=== PATIENT | female | born 1985 ===

== ENCOUNTER 2019-03-01 16:37 | Emergency (ER) | payer SELFPAY ==
[2019-03-01 16:45] VITALS: BP 130/66
--- NOTE | 2019-03-01 18:10 | Event Note ---
ED Screening Note Date of service: 03/01/19 Time: 18:09 ED Screening Note: 33 y o f presents at 7 weeks presents with vag bleed x 5 days worsening This initial assessment/diagnostic orders/clinical plan/treatment(s) is/are subject to change based on patients health status, clinical progression and re- assessment by fellow clinical providers in the ED. Further treatment and workup at subsequent clinical providers discretion. Patient/guardian urged not to elope from the ED as their condition may be serious if not clinically assessed and managed. Initial orders include: labs us pnc
--- NOTE | 2019-03-01 19:57 | Ultrasound Report ---
ULTRASOUND OBSTETRIC Indication: and bleeding Findings: Patient declined transvaginal imaging There is a single, living intrauterine . [place]-rump length = 1.03 cm = 7 weeks, 1 day(s). heart rate is 145 beats per minute. The ovaries are normal. There is no free fluid. Impression: Single, living intrauterine with estimated sonographic age of 7 weeks, 1 day(s). Signer Name: Ramón Garcia MD Signed: 03/01/2019 7:53 PM Workstation Name: [id number]
[2019-03-01 20:27] LABS: Basophils # (Auto) 0.1 K/mm3 (0.0-0.1); Basophils % (Auto) 0.7 % (0.0-1.8); Eosinophils # (Auto) 0.1 K/mm3 (0.0-0.4); Hematocrit 39.4 % (30.3-42.9); Hemoglobin 13.8 gm/dl (10.1-14.3); Lymphocytes # (Auto) 2.8 K/mm3 (1.2-5.4); Mean Corpuscular HGB Conc 35 % (30-34); Mean Corpuscular Volume 90 fl (79-97); Monocytes # (Auto) 0.6 K/mm3 (0.0-0.8); Platelet Count 266 K/mm3 (140-440); Red Blood Count 4.41 M/mm3 (3.65-5.03); Red Cell Distribution Width 13.5 % (13.2-15.2)
[2019-03-01 20:51] LABS: Bilirubin,Urine NEG (Negative); Blood,Urine NEG (Negative); Color,Urine Yellow (Yellow); Protein,Urine <15 mg/dL mg/dL (Negative); Urobilinogen,Urine < 2.0 mg/dL (<2.0)
[2019-03-01] MEDS ORDERED: ONDANSETRON 4 MG ODT TAB PO ONE (21:56)
--- NOTE | 2019-03-01 22:46 | Emergency Department Report ---
ED HPI - General Chief complaint: Vaginal Bleeding Stated complaint: VAGINAL BLEEDING/7WKS Time Seen by Provider: 03/01/19 21:11 Source: patient Mode of arrival: Ambulatory Limitations: No Limitations - History of Present Illness Initial comments: 33 y o f presents at 7 weeks presents with vag bleed x 5 days worsening - Related Data Previous Rx's Medication Instructions Recorded Last Taken Type Acetaminophen [Acetaminophen TAB] 650 mg PO Q6HR PRN #30 tablet 03/01/19 Unknown Rx Ondansetron [Zofran Odt] 4 mg PO Q8HR PRN #21 tab.rapdis 03/01/19 Unknown Rx Allergies Allergy/AdvReac Type Severity Reaction Status Date / Time No Known Allergies Allergy Unverified 03/01/19 18:55 ED Review of Systems ROS: Stated complaint: VAGINAL BLEEDING/7WKS Other details as noted in HPI ED Past Medical Hx - Past Medical History Previous Medical History?: No - Surgical History Past Surgical History?: No - Social History Smoking Status: Never Smoker Substance Use Type: None - Medications Home Medications: Home Medications Medication Instructions Recorded Confirmed Last Taken Type Acetaminophen [Acetaminophen TAB] 650 mg PO Q6HR PRN #30 tablet 03/01/19 Unknown Rx Ondansetron [Zofran Odt] 4 mg PO Q8HR PRN #21 tab.rapdis 03/01/19 Unknown Rx ED Physical Exam - General Limitations: No Limitations ED Course Vital Signs 03/01/19 03/01/19 16:43 18:11 Temperature 97.6 F 97.6 F Pulse Rate 72 72 Respiratory 16 16 Rate Blood Pressure 130/66 130/66 O2 Sat by Pulse 98 98 Oximetry ED Medical Decision Making - Lab Data Result diagrams: 03/01/19 19:55 - Radiology Data Radiology results: report reviewed, image reviewed Ordering Physician: FRANCISCO HARDIN Date of Service: 03/01/19 Procedure(s): US OB <= 14 weeks fetus Accession Number(s): [id number] cc: FRANCISCO HARDIN ULTRASOUND OBSTETRIC Indication: and bleeding Findings: Patient declined transvaginal imaging There is a single, living intrauterine . [place]-rump length = 1.03 cm = 7 weeks, 1 day(s). heart rate is 145 beats per minute. The ovaries are normal. There is no free fluid. Impression: Single, living intrauterine with estimated sonographic age of 7 weeks, 1 day(s). Signer Name: Ramón Garcia MD Signed: 03/01/2019 7:53 PM Workstation Name: [email or web address] Transcribed By: SS Dictated By: Ramón Garcia MD Electronically Authenticated By: Ramón Garcia MD Signed Date/Time: 03/01/191952 DD/ 50 TD/TT: - Medical Decision Making US OB: Single IUP 7 weeks and 4 days, FHR 145 bpm, pt ua; luek:trac, wbc, hc, blood type B pos, plan: keflex. zofran, tylenol follow up with OBGYN in 2-3 days, pt and sig other verbalized agreement and understanding of discharge plan. pt will follow up wth OBGYN in 2 days. there is no vaginal bleeding at this time, no n/v, no fever or chills, pt dc'd to home. Critical care attestation.: If time is entered above; I have spent that time in minutes in the direct care of this critically ill patient, excluding procedure time. ED Disposition Clinical Impression: Vaginal bleeding during , Threatened miscarriage Urinary tract infection during Qualifiers: Trimester: first trimester Qualified Code(s): O23.41 - Unspecified infection of urinary tract in , first trimester Qualifiers: Weeks of gestation: less than 8 weeks Qualified Code(s): Z3A.01 - Less than 8 weeks gestation of Disposition: DC-01 TO HOME OR SELFCARE Is pt being admited?: No Does the pt Need Aspirin: No Condition: Stable Instructions: Urinary Tract Infection in Women (ED), (ED), Threatened Miscarriage (ED) Prescriptions: Acetaminophen [Acetaminophen TAB] 650 mg PO Q6HR PRN #30 tablet PRN Reason: Pain Ondansetron [Zofran Odt] 4 mg PO Q8HR PRN #21 tab.rapdis PRN Reason: Nausea And Vomiting Referrals: RUSSELL BECKHAM MD [Staff Physician] - 3-5 Days Forms: Work/School Release Form(ED) Time of Disposition: 22:58 Print Language: VINCENTIAN
--- NOTE | 2019-03-01 23:09 | Emergency Department Report ---
ED HPI - General Chief complaint: Vaginal Bleeding Stated complaint: VAGINAL BLEEDING/7WKS Time Seen by Provider: 03/01/19 21:11 Source: patient Mode of arrival: Ambulatory Limitations: No Limitations - History of Present Illness Initial comments: Ms. Gordillo is s 33 y/o female who presents at 7 weeks for complaint of vaginal bleed x 5 days worsening. described as spotting pink, with urinary frequency, there is no fever no chills no n/v. pt is G2, p2, A0,. no other hx. pt denies exacerbating or relieving factors. states some morning sickness with n/v. Pt prefers to use and diplomatic interpreter/translator. MD Complaint: vaginal bleeding Onset/Timin -: days(s) Radiation: suprapubic Severity: moderate Quality: cramping Consistency: intermittent Improves with: none Worsens with: none Associated symptoms: vaginal bleeding Vaginal bleeding: light :: Yes Number of weeks : 7 OB History - Current : no complications OB History - Previous Pregnancies: no complications Last menstrual period: 01/09/19 Pre- care: followed by OB - Related Data : 2 Para: 2 Ab: 0 Previous Rx's Medication Instructions Recorded Last Taken Type Acetaminophen [Acetaminophen TAB] 650 mg PO Q6HR PRN #30 tablet 03/01/19 Unknown Rx Ondansetron [Zofran Odt] 4 mg PO Q8HR PRN #21 tab.rapdis 03/01/19 Unknown Rx Allergies Allergy/AdvReac Type Severity Reaction Status Date / Time No Known Allergies Allergy Unverified 03/01/19 18:55 ED Review of Systems ROS: Stated complaint: VAGINAL BLEEDING/7WKS Other details as noted in HPI Constitutional: denies: chills, fever Eyes: denies: eye pain, eye discharge, vision change ENT: denies: ear pain, throat pain Respiratory: denies: cough, shortness of breath, wheezing Cardiovascular: denies: chest pain, palpitations Endocrine: no symptoms reported Gastrointestinal: abdominal pain, nausea, vomiting. denies: diarrhea, constipation, melena Genitourinary: frequency. denies: urgency, dysuria, hematuria, discharge Musculoskeletal: denies: back pain, joint swelling, arthralgia Skin: denies: rash, lesions Neurological: denies: headache, weakness, paresthesias Psychiatric: denies: anxiety, depression Hematological/Lymphatic: denies: easy bleeding, easy bruising ED Past Medical Hx - Past Medical History Previous Medical History?: No - Surgical History Past Surgical History?: No - Social History Smoking Status: Never Smoker Substance Use Type: None - Medications Home Medications: Home Medications Medication Instructions Recorded Confirmed Last Taken Type Acetaminophen [Acetaminophen TAB] 650 mg PO Q6HR PRN #30 tablet 03/01/19 Unknown Rx Ondansetron [Zofran Odt] 4 mg PO Q8HR PRN #21 tab.rapdis 03/01/19 Unknown Rx ED Physical Exam - General Limitations: No Limitations General appearance: alert, in no apparent distress - Head Head exam: Present: atraumatic, normocephalic - Eye Eye exam: Present: normal appearance, PERRL, EOMI Pupils: Present: normal accommodation - ENT ENT exam: Present: mucous membranes moist - Neck Neck exam: Present: normal inspection, full ROM - Respiratory Respiratory exam: Present: normal lung sounds bilaterally. Absent: respiratory distress - Cardiovascular Cardiovascular Exam: Present: regular rate, normal rhythm, normal heart sounds. Absent: systolic murmur, diastolic murmur, rubs, gallop - GI/Abdominal GI/Abdominal exam: Present: soft, normal bowel sounds. Absent: distended, tenderness, guarding, rebound, rigid, bruit, hernia - Rectal Rectal exam: Present: deferred - External exam: Present: other (exam deferred per patient ) - Extremities Exam Extremities exam: Present: normal inspection, full ROM. Absent: tenderness - Back Exam Back exam: Present: normal inspection, full ROM. Absent: tenderness, CVA tenderness (R), CVA tenderness (L) - Neurological Exam Neurological exam: Present: alert, oriented X3, CN II-XII intact, normal gait - Psychiatric Psychiatric exam: Present: normal affect, normal mood - Skin Skin exam: Present: warm, dry, intact, normal color. Absent: rash ED Course Vital Signs 03/01/19 03/01/19 16:43 18:11 Temperature 97.6 F 97.6 F Pulse Rate 72 72 Respiratory 16 16 Rate Blood Pressure 130/66 130/66 O2 Sat by Pulse 98 98 Oximetry ED Medical Decision Making - Lab Data Result diagrams: 03/01/19 19:55 Labs 03/01/19 03/01/19 03/01/19 19:55 19:55 19:55 WBC 9.3 RBC 4.41 Hgb 13.8 Hct 39.4 MCV 90 MCH 31 MCHC 35 H RDW 13.5 Plt Count 266 Lymph % (Auto) 30.0 Sampson % (Auto) 6.0 Eos % (Auto) 1.0 Baso % (Auto) 0.7 Lymph # 2.8 Sampson # 0.6 Eos # 0.1 Baso # 0.1 Seg Neutrophils % 62.3 Seg Neutrophils # 5.8 HCG, Quant 43211 H Urine Color Urine Turbidity Urine pH Ur Specific [place] Urine Protein Urine Glucose (UA) Urine Ketones Urine Blood Urine Nitrite Urine Bilirubin Urine Urobilinogen Ur Leukocyte Esterase Urine WBC (Auto) Urine RBC (Auto) U Epithel Cells (Auto) Blood Type O POSITIVE 03/01/19 20:19 WBC RBC Hgb Hct MCV MCH MCHC RDW Plt Count Lymph % (Auto) Sampson % (Auto) Eos % (Auto) Baso % (Auto) Lymph # Sampson # Eos # Baso # Seg Neutrophils % Seg Neutrophils # HCG, Quant Urine Color Yellow Urine Turbidity Clear Urine pH 6.0 Ur Specific [place] 1.006 Urine Protein <15 mg/dl Urine Glucose (UA) Neg Urine Ketones Neg Urine Blood Neg Urine Nitrite Neg Urine Bilirubin Neg Urine Urobilinogen < 2.0 Ur Leukocyte Esterase Tr Urine WBC (Auto) 4.0 Urine RBC (Auto) 2.0 U Epithel Cells (Auto) 2.0 Blood Type - Radiology Data Radiology results: report reviewed, image reviewed Ordering Physician: FRANCISCO HARDIN Date of Service: 03/01/19 Procedure(s): US OB <= 14 weeks fetus Accession Number(s): [id number] cc: FRANCISCO HARDIN ULTRASOUND OBSTETRIC Indication: and bleeding Findings: Patient declined transvaginal imaging There is a single, living intrauterine . [place]-rump length = 1.03 cm = 7 weeks, 1 day(s). heart rate is 145 beats per minute. The ovaries are normal. There is no free fluid. Impression: Single, living intrauterine with estimated sonographic age of 7 weeks, 1 day(s). Signer Name: Ramón Garcia MD Signed: 03/01/2019 7:53 PM Workstation Name: [id number] Transcribed By: SS Dictated By: Ramón Garcia MD Electronically Authenticated By: Ramón Garcia MD Signed Date/Time: 03/01/191952 DD/ 50 TD/TT: - Medical Decision Making single IUP: 7 weeks and 4 days, ua: trace luek, rbc, plan: keflex, zofran, tylenol follow up with obgyn in 2-3 days, return to ed if symptoms worsen, pt and family member verbalized agreement and understanding of same Critical care attestation.: If time is entered above; I have spent that time in minutes in the direct care of this critically ill patient, excluding procedure time. ED Disposition Clinical Impression: Vaginal bleeding during , Urinary tract infection during , , Threatened miscarriage Disposition: - TO HOME OR SELFCARE Condition: Stable Instructions: Threatened Miscarriage (ED), (ED), Urinary Tract Infection in Women (ED) Prescriptions: Acetaminophen [Acetaminophen TAB] 650 mg PO Q6HR PRN #30 tablet PRN Reason: Pain Ondansetron [Zofran Odt] 4 mg PO Q8HR PRN #21 tab.rapdis PRN Reason: Nausea And Vomiting Referrals: RUSSELL BECKHAM MD [Staff Physician] - 3-5 Days Forms: Work/School Release Form(ED) Print Language: [place]
== END 2019-03-01 23:14 | disposition home or self-care (01) ==
LOC: ED 16:37
DX: O20.0 Threatened abortion (principal); O23.41 Unspecified infection of urinary tract in pregnancy, first trimester; Z3A.01 Less than 8 weeks gestation of pregnancy
CPT/HCPCS: 36415; 76801; 81001; 84702; 85025; 86900; 86901; Q0162